=== PATIENT | male | born 1965 | race Caucasian/White ===

== ENCOUNTER → 2022-04-07 13:39 | Outpatient (CLI) | payer OTHER, SELFPAY ==
--- NOTE | ~2022-04-07 | CT_ITS ---
EXAMINATION: CT pelvis wo con DATE: 04/07/2022 13:56 INDICATION: Right lower quadrant and groin pain. Evaluate for hernia. TECHNIQUE: Computed tomography (CT) of the pelvis was performed without intravenous contrast. The dos e-length product was 633.92 mGy-cm. Automated exposure control and iterative reconstruction technique were employed. COMPARISON: None FINDINGS: Nonobstructive bowel gas pattern. No significant vascular abnormality. No free air or free fluid. Bladder is unremarkable. No evidence for inguinal hernia. Tiny fat-containing umbilical hernia . Mild osteoarthritis of the hips. No acute osseous abnormality. IMPRESSION: 1. No evidence for inguinal hernia. Reviewed, dictated and finalized at location A.
== END ==
PROVIDERS: PCP Family Medicine; Visit Provider Surgery
DX: R10.31 Right lower quadrant pain (principal)
CPT/HCPCS: 72192

== ENCOUNTER 2022-08-30 06:57 | Day surgery (SDC) | payer OTHER, SELFPAY ==
[2022-08-04 13:59] VITALS: BMI 39.4
[2022-08-15 10:36] VITALS: BMI 39.3
--- NOTE | 2022-08-30 07:58 | WPDANESEPPF ---
Anes - Initial Pre Proc Eval Procedure: Operation Date: 08/30/22 13:00 Proposed Procedures p Screening Colonoscopy - Stephane Bermudez MD Date/Time: 08/30/22 07:58 Surgeon: Stephane Bermudze MD Pre Op Diagnosis: Neoplasm Screening Patient Data Age: 57 Gender: M Height: 1.7 m Weight: 114 kg Allergies Allergy/AdvReac Type Severity Reaction Status Date / Time Penicillins Allergy Unknown Anaphylactic Verified 08/15/22 10:40 Shock Sulfa (Sulfonamide Allergy Unknown Rash Verified 08/15/22 10:40 Antibiotics) tetracycline Allergy Unknown Rash Verified 08/15/22 10:40 Home Medications Medication Instructions Recorded Confirmed Type calcium carbonate 300 mg (750 mg) 300 mg PO BID 08/15/22 08/15/22 History chewable tablet (Tums) diphenhydramine HCl 25 mg capsule 25 mg PO HS PRN Sleep 08/15/22 08/15/22 History (Benadryl) ibuprofen 200 mg capsule 200 mg PO Q6H PRN pain 08/15/22 08/15/22 History Patient hx anesthesia problems: none Family hx anesthesia problems: none Results Review: All pre-operative results and documents have been reviewed as part of the pre-operative evaluation. [facility] Past Medical History Medical History (Updated 08/30/22 @ 07:59 by Tan Fallon MD) BMI 39.0-39.9,adult Obesity Family History Family History Grandparent Family history of cardiovascular disease Mother Family history of lung cancer Father Family history of primary malignant neoplasm of liver Grandparent Efren chorea Social History Social History Smoking status: Never smoker Second hand tobacco smoke exposure: No Alcohol intake: current Alcohol use details: occasional wine Substance use: never Substance use type: does not use Living arrangements: with family Gender identity (if verbalized by the patient): Male Spiritual care concerns: No Agree to blood products: Yes Anes - Eval Final PreProcedure Day of Procedure 08/30/22 07:58 Patient weight: obese Heart: regular rate and rhythm Lungs: clear to auscultation and normal air movement Airway: Mallampati scale class II Neurological: alert and oriented Last oral intake: >/= 8 hours ASA classification: II Emergent: no Anesthetic plan: proceed Anesthesia type and monitoring: general GIVS Results Review: All pre-operative results and documents have been reviewed as part of the pre-operative evaluation. Informed Consent: The patient's anesthetic plan and its attendant risks and benefits were discussed with the patient/family/POA. Questions were solicited and answers provided to the satisfaction of the patient/family/POA.
[2022-08-30 11:33] VITALS: BP 148/95; PULSE 71; RESP 18; TEMP 37.1; O2SAT 99
[2022-08-30] MEDS: LACTATED RINGERS 1,000 ML 150 ML IV CONT (11:43)
--- NOTE | 2022-08-30 12:35 | PM.HPGS ---
History of Present Illness History of Present Illness Consent: Risks, benefits, and alternatives have been discussed and questions answered. Patient agrees to proceed with procedure. Chief complaint: Neoplasm Screening Narrative: Seth Elliott is a 57 year old male with colon polyp about 9 years ago Review of Systems Constitutional: Constitutional: Denies headache(s) and Denies weakness Eyes: Eyes: Denies blurry vision ENT: Reports Normal hearing present, Denies headache(s) and Denies neck pain Cardiovascular: Cardiovascular: Denies chest pain and Denies dyspnea Respiratory: Respiratory: Denies dyspnea Gastrointestinal: Gastrointestinal: Reports no additional gastrointestinal complaints Genitourinary: Genitourinary: Denies dysuria Musculoskeletal: Musculoskeletal: Denies neck pain Integumentary/Breasts: Skin/Breast: Denies dry skin Neurologic: Reports Normal hearing present, Denies headache(s) and Denies weakness Psychiatric: Psychiatric: Denies anxiety Endocrine: Endocrine: Denies change in body appearance Hematologic/Lymphatic: Hematologic/Lymphatic: Denies easy bleeding Allergic/Immunologic: Allergic/Immunologic: Denies urticaria [facility] Past Medical History Medical History (Updated 08/30/22 @ 12:36 by Stephane Bermudez MD) BMI 39.0-39.9,adult Colon cancer screening Obesity Family History Family History Grandparent Family history of cardiovascular disease Mother Family history of lung cancer Father Family history of primary malignant neoplasm of liver Grandparent [place] chorea Social History Social History Smoking status: Never smoker Second hand tobacco smoke exposure: No Alcohol intake: current Alcohol use details: occasional wine Substance use: never Substance use type: does not use Living arrangements: with family Gender identity (if verbalized by the patient): Male Spiritual care concerns: No Agree to blood products: Yes Meds Home Medications and Allergies Home Medications Medication Instructions Recorded Confirmed Type calcium carbonate 300 mg (750 mg) 300 mg PO BID 08/15/22 08/30/22 History chewable tablet (Tums) diphenhydramine HCl 25 mg capsule 25 mg PO HS PRN Sleep 08/15/22 08/30/22 History (Benadryl) ibuprofen 200 mg capsule 200 mg PO Q6H PRN pain 08/15/22 08/30/22 History Allergies Allergy/AdvReac Type Severity Reaction Status Date / Time Penicillins Allergy Unknown Anaphylactic Verified 08/30/22 11:32 Shock Sulfa (Sulfonamide Allergy Unknown Rash Verified 08/30/22 11:32 Antibiotics) tetracycline Allergy Unknown Rash Verified 08/30/22 11:32 Vital Signs Vital Signs - 24 hr 08/30/22 11:33 Temperature 98.8 F Pulse Rate 71 Respiratory Rate 18 Blood Pressure 148/95 H Pulse Oximetry 99 Oxygen Delivery Room Air Exam Const: General: comfortable and no acute distress HENMT: Face/Nose/Sinus: Normal nares present Eyes: General: appearance normal, both eyes and all related structures Neck: Neck: no JVD Resp: Auscultation: clear to auscultation bilaterally Cardio: Rate: regular rate Rhythm: regular rhythm GI: Inspection: non-distended GI Palp: Yes Soft to palpation Skin: General skin exam: normal color Neuro: General: gait normal Speech: normal speech Extrem: General: normal to inspection Psych: Mental Status: mental status grossly normal Assessment and Plan Assessment and plan (1) Colon cancer screening: Code(s): Z12.11 - Encounter for screening for malignant neoplasm of colon Status: Acute Assessment and Plan: colonoscopy
[2022-08-30 13:02] VITALS: BP 145/88; PULSE 71; RESP 18; O2SAT 98
[2022-08-30 13:12] VITALS: BP 123/83; PULSE 64; RESP 15; O2SAT 97
--- NOTE | 2022-08-30 13:48 | SUR.PHASEII ---
1340-pt rolled on left side and knees pulled up to chest- co2 passing without difficulty- abdomen less bloated- pt states he experienced relief
--- NOTE | 2022-08-30 14:00 | WPDANESPN ---
Anes - Prog Note Post-Op Date/Time: 08/30/22 14:00 Cardiovascular status: normal Respiratory status: normal Airway patency: baseline Mental status: baseline Post-Op hydration status: normal Vital Signs: Last Vital Signs Temp 37.1 C 08/30/22 11:33 Pulse 64 08/30/22 13:12 Resp 15 08/30/22 13:12 BP 123/83 08/30/22 13:12 Pulse Ox 97 08/30/22 13:12 O2 Del Method Room Air 08/30/22 13:12 Pain Score (VAS): 0 Post-procedural complaints: none Patient Feedback: Patient satisfied with anesthetic care.
== END 2022-08-30 13:48 | disposition home or self-care (01) ==
PROVIDERS: PCP Family Medicine; Visit Provider Internal Medicine Gastroenterology
PROC: 0DJD8ZZ Inspection of Lower Intestinal Tract, Via Natural or Artificial Opening Endoscopic (ICD-10-PCS; CPT 45378; principal; 2022-08-30 13:00)
DX: Z12.11 Encounter for screening for malignant neoplasm of colon (principal)
CPT/HCPCS: 45378